=== PATIENT | female | born 1945 | race Caucasian/White ===

== ENCOUNTER 2016-11-30 16:28 | Inpatient (IN) | payer MEDICARE, OTHER ==
[~2016-11-30] VITALS: Ht 157.5 cm; Wt 59.2 kg
[~2016-11-30 16:28] MED LIST: CARB100T4 PO; CARB200T4 PO; CHOL20003 PO; CLON-364 PO; CLON0.25 PO; CYAN100028 PO; DONE10TA7 PO; ERGO500017 PO; ESCI5SOL2 PO; FOLI-17 PO; GABA300C10 PO; GABA600T2 PO; HYDR-3144 PO; LEVE10007 PO; LISI5TAB7 PO; MELO-190 PO; METO25TA35 PO; OLAN7.5T5 PO; OXYC10TA6 PO; POTA10TA12 PO; PRED20TA PO; SERT50TA5 PO
[2016-11-30] MEDS ORDERED: SODIUM CHLORIDE 0.9% 1,000 ML IV ONE (16:37)
[2016-11-30] MEDS ORDERED: ALBUTEROL/IPRATROPIUM 2.5MG/0.5MG, 3 ML ONE (16:51)
[2016-11-30] MEDS ORDERED: ALBUTEROL/IPRATROPIUM 2.5MG/0.5MG, 3 ML NPPB ONE (17:00)
[2016-11-30] MEDS ORDERED: SODIUM CHLORIDE FLUSH 10ML SYR IVF ONE (17:00)
[2016-11-30 17:04] LABS: BLOOD UREA NITROGEN 14 mg/dL (7-18)
[2016-11-30 17:08] LABS: IS PT STATUS REG ER OR PRE ER? YES
[2016-11-30] MEDS ORDERED: MORPHINE SULFATE 4 MG/ML, 1ML ONE (18:17)
[2016-11-30] MEDS ORDERED: DIPHENHYDRAMINE 50 MG/ML, 1ML ONE (18:45)
[2016-11-30] MEDS ORDERED: DIPHENHYDRAMINE 50 MG/ML, 1ML IVPush ONE (19:00)
[2016-11-30] MEDS ORDERED: MORPHINE SULFATE 4 MG/ML, 1ML IVPush PRN (19:00)
[2016-11-30] MEDS ORDERED: POLYETHYLENE GLYCOL 17 GM PACKET PO PRN (19:30)
[2016-11-30] MEDS ORDERED: ERGOCALCIFEROL 50,000 UNIT CAPSULE PO SCH (19:30)
[2016-11-30] MEDS ORDERED: ACETAMINOPHEN 325 MG TABLET PO PRN (19:30)
[2016-11-30] MEDS ORDERED: ONDANSETRON 2MG/ML, 2ML IVPush PRN (19:30)
[2016-11-30] MEDS ORDERED: BISACODYL 10 MG SUPP PR PRN (19:30)
[2016-11-30 20:05] VITALS: BP 118/65
[2016-11-30] MEDS: HYDROcodone/APAP 10/325 MG TABLET PO PRN (20:12)
[2016-11-30 20:30] VITALS: BP 118/65
[2016-11-30] MEDS: METOPROLOL TARTRATE 25 MG TABLET PO SCH (20:57)
[2016-11-30] MEDS: HEPARIN 5,000 UNITS/ML, 1ML SQ SCH (20:57)
[2016-11-30] MEDS: GABAPENTIN 300 MG CAPSULE PO SCH (20:58)
[2016-11-30] MEDS ORDERED: HYDROcodone/APAP 10/325 MG TABLET PO SCH (21:00)
[2016-11-30] MEDS: NICOTINE 7 MG/24 HR PATCH.TD24 TD SCH (21:02)
[2016-11-30] MEDS: SODIUM CHLORIDE FLUSH 3ML SYRINGE IVF SCH (21:03)
[2016-11-30] MEDS: AZITHROMYCIN 500 MG in SODIUM CHLORIDE 0.9% 250 ML IV SCH (21:04)
[2016-12-01 01:45] VITALS: BP 99/66
[2016-12-01] MEDS: HEPARIN 5,000 UNITS/ML, 1ML SQ SCH ×3 (05:38→20:55)
[2016-12-01 05:59] LABS: ASPARTATE AMINO TRANSFERASE 16 U/L (15-37); BLOOD UREA NITROGEN 10 mg/dL (7-18)
[2016-12-01] MEDS ORDERED: PNEUMOCOCCAL 23 VACCINE IM-VACC ONE (07:00)
[2016-12-01 07:51] VITALS: BP 117/71
[2016-12-01] MEDS: HYDROcodone/APAP 10/325 MG TABLET PO PRN ×3 (08:12→20:55)
[2016-12-01] MEDS: OLANZAPINE 2.5 MG TABLET PO SCH (08:14)
[2016-12-01] MEDS: MELOXICAM 15 MG TABLET PO SCH (08:15)
[2016-12-01] MEDS: METOPROLOL TARTRATE 25 MG TABLET PO SCH ×2 (08:16→20:55)
[2016-12-01] MEDS: SENNA/DOCUSATE TABLET PO SCH (08:16)
[2016-12-01] MEDS: SERTRALINE 50MG TABLET PO SCH (08:17)
[2016-12-01] MEDS: LISINOPRIL 5 MG TABLET PO SCH (08:17)
[2016-12-01] MEDS: GABAPENTIN 300 MG CAPSULE PO SCH ×3 (08:17→20:55)
[2016-12-01] MEDS: CYANOCOBALAMIN 1,000 MCG TABLET PO SCH (08:17)
[2016-12-01] MEDS ORDERED: POTASSIUM CHLORIDE 10 MEQ TABLET.ER PO SCH (09:00)
[2016-12-01] MEDS: SODIUM CHLORIDE FLUSH 3ML SYRINGE IVF SCH ×2 (09:00→20:56)
[2016-12-01] MEDS: DONEPEZIL 10 MG TABLET PO SCH (12:06)
[2016-12-01] MEDS: FLUTICASONE/VILANTEROL 100-25MCG/INH INH SCH (12:08)
[2016-12-01 14:00] VITALS: BP 96/60
[2016-12-01] MEDS: POTASSIUM CHLORIDE 10 MEQ TABLET.ER PO SCH (16:06)
[2016-12-01] MEDS: NICOTINE 7 MG/24 HR PATCH.TD24 TD SCH (19:30)
[2016-12-01 19:32] VITALS: BP 117/68
[2016-12-01] MEDS: AZITHROMYCIN 500 MG in SODIUM CHLORIDE 0.9% 250 ML IV SCH (20:55)
[2016-12-02 00:45] VITALS: BP 98/60
[2016-12-02] MEDS: HEPARIN 5,000 UNITS/ML, 1ML SQ SCH ×3 (05:15→23:25)
[2016-12-02] MEDS: HYDROcodone/APAP 10/325 MG TABLET PO PRN ×2 (05:17→15:22)
[2016-12-02 07:43] VITALS: BP 123/70
[2016-12-02] MEDS: CYANOCOBALAMIN 1,000 MCG TABLET PO SCH (08:46)
[2016-12-02] MEDS: SERTRALINE 50MG TABLET PO SCH (08:46)
[2016-12-02] MEDS: LISINOPRIL 5 MG TABLET PO SCH (08:46)
[2016-12-02] MEDS: FLUTICASONE/VILANTEROL 100-25MCG/INH INH SCH (08:46)
[2016-12-02] MEDS: SODIUM CHLORIDE FLUSH 3ML SYRINGE IVF SCH ×2 (08:47→20:39)
[2016-12-02] MEDS: OLANZAPINE 2.5 MG TABLET PO SCH (08:47)
[2016-12-02] MEDS: GABAPENTIN 300 MG CAPSULE PO SCH ×3 (08:47→20:38)
[2016-12-02] MEDS: POTASSIUM CHLORIDE 10 MEQ TABLET.ER PO SCH (08:47)
[2016-12-02] MEDS: METOPROLOL TARTRATE 25 MG TABLET PO SCH ×2 (08:47→20:38)
[2016-12-02] MEDS: DONEPEZIL 10 MG TABLET PO SCH (08:47)
[2016-12-02] MEDS: SENNA/DOCUSATE TABLET PO SCH (08:48)
[2016-12-02] MEDS: MELOXICAM 15 MG TABLET PO SCH (10:48)
[2016-12-02 15:45] VITALS: BP 105/47
[2016-12-02] MEDS: NICOTINE 7 MG/24 HR PATCH.TD24 TD SCH (19:30)
[2016-12-02 19:41] VITALS: BP 110/56
[2016-12-03 01:35] VITALS: BP 107/70
[2016-12-03] MEDS: HYDROcodone/APAP 10/325 MG TABLET PO PRN ×5 (02:35→22:30)
[2016-12-03 07:12] VITALS: BP 116/58
[2016-12-03] MEDS: SODIUM CHLORIDE FLUSH 3ML SYRINGE IVF SCH ×2 (08:14→20:13)
[2016-12-03] MEDS: FLUTICASONE/VILANTEROL 100-25MCG/INH INH SCH (08:14)
[2016-12-03] MEDS: POTASSIUM CHLORIDE 10 MEQ TABLET.ER PO SCH (08:14)
[2016-12-03] MEDS: HEPARIN 5,000 UNITS/ML, 1ML SQ SCH ×3 (08:14→22:31)
[2016-12-03] MEDS: DONEPEZIL 10 MG TABLET PO SCH (08:14)
[2016-12-03] MEDS: LISINOPRIL 5 MG TABLET PO SCH (08:15)
[2016-12-03] MEDS: METOPROLOL TARTRATE 25 MG TABLET PO SCH ×2 (08:15→20:13)
[2016-12-03] MEDS: GABAPENTIN 300 MG CAPSULE PO SCH ×3 (08:15→20:13)
[2016-12-03] MEDS: SERTRALINE 50MG TABLET PO SCH (08:15)
[2016-12-03] MEDS: SENNA/DOCUSATE TABLET PO SCH (08:15)
[2016-12-03] MEDS: MELOXICAM 15 MG TABLET PO SCH (08:15)
[2016-12-03] MEDS: CYANOCOBALAMIN 1,000 MCG TABLET PO SCH (08:15)
[2016-12-03] MEDS: OLANZAPINE 2.5 MG TABLET PO SCH (08:16)
[2016-12-03 13:30] VITALS: BP 126/77
[2016-12-03] MEDS: NICOTINE 7 MG/24 HR PATCH.TD24 TD SCH (19:30)
[2016-12-03 20:08] VITALS: BP 124/70
[2016-12-03] MEDS: AZITHROMYCIN 500 MG in SODIUM CHLORIDE 0.9% 250 ML IV SCH (20:13)
[2016-12-04 02:00] VITALS: BP 145/77
[2016-12-04 07:26] VITALS: BP 128/70
[2016-12-04] MEDS: FLUTICASONE/VILANTEROL 100-25MCG/INH INH SCH (08:07)
[2016-12-04] MEDS: HEPARIN 5,000 UNITS/ML, 1ML SQ SCH (08:07)
[2016-12-04] MEDS: SODIUM CHLORIDE FLUSH 3ML SYRINGE IVF SCH (08:07)
[2016-12-04] MEDS: DONEPEZIL 10 MG TABLET PO SCH (08:07)
[2016-12-04] MEDS: POTASSIUM CHLORIDE 10 MEQ TABLET.ER PO SCH (08:08)
[2016-12-04] MEDS: MELOXICAM 15 MG TABLET PO SCH (08:08)
[2016-12-04] MEDS: METOPROLOL TARTRATE 25 MG TABLET PO SCH (08:08)
[2016-12-04] MEDS: OLANZAPINE 2.5 MG TABLET PO SCH (08:09)
[2016-12-04] MEDS: CYANOCOBALAMIN 1,000 MCG TABLET PO SCH (08:09)
[2016-12-04] MEDS: HYDROcodone/APAP 10/325 MG TABLET PO PRN (08:09)
[2016-12-04] MEDS: SENNA/DOCUSATE TABLET PO SCH (08:09)
[2016-12-04] MEDS: SERTRALINE 50MG TABLET PO SCH (08:09)
[2016-12-04] MEDS: GABAPENTIN 300 MG CAPSULE PO SCH (08:09)
[2016-12-04] MEDS: LISINOPRIL 5 MG TABLET PO SCH (08:11)
[2016-12-04] MEDS ORDERED: PRED5TAB PO (08:28)
[2016-12-04] MEDS ORDERED: HYDR-3144 PO (08:28)
[2016-12-04] MEDS ORDERED: AZIT250T89 PO (08:28)
== END 2016-12-04 12:15 | disposition home or self-care (01) | DRG 189 ==
LOC: ED 18:41 → EDIP 19:24 → 3NE 19:30 → DCLOUNGE 12-04 11:34
PROVIDERS: ADMIT Internal Medicine; ATTEND Internal Medicine
DX: J96.01 Acute respiratory failure with hypoxia (principal); J44.1 Chronic obstructive pulmonary disease with (acute) exacerbation; E44.1 Mild protein-calorie malnutrition; G35 Multiple sclerosis; Z96.651 Presence of right artificial knee joint; G50.0 Trigeminal neuralgia; F17.210 Nicotine dependence, cigarettes, uncomplicated; M19.90 Unspecified osteoarthritis, unspecified site; G89.4 Chronic pain syndrome; Z80.1 Family history of malignant neoplasm of trachea, bronchus and lung; Z68.23 Body mass index [BMI] 23.0-23.9, adult; Z82.49 Family history of ischemic heart disease and other diseases of the circulatory system; Z90.49 Acquired absence of other specified parts of digestive tract; Z90.89 Acquired absence of other organs; Z88.5 Allergy status to narcotic agent; Z88.8 Allergy status to other drugs, medicaments and biological substances; Z71.6 Tobacco abuse counseling; Z23 Encounter for immunization
CPT/HCPCS: 36415; 71010; 80048; 80053; 82040; 83880; 84484; 85025; 90732; 93005; 94640; 96361; 96374; 96375; J0456; J1644; J7620; J1200; J7030; J7050; J7512

== ENCOUNTER 2016-12-06 04:22 | Inpatient (IN) | payer MEDICARE ==
[~2016-12-06] VITALS: Ht 157.5 cm; Wt 55.6 kg
[~2016-12-06 04:22] MED LIST changes: +AZIT250T89 PO; +CHOL2000 PO; -CHOL20003 PO; +PRED5TAB PO
[2016-12-06] MEDS ORDERED: HYDROmorphone 1 MG/ML, 1ML ONE (05:24)
[2016-12-06] MEDS ORDERED: ONDANSETRON 2MG/ML, 2ML ONE (05:24)
[2016-12-06] MEDS ORDERED: SODIUM CHLORIDE FLUSH 10ML SYR IVF ONE (05:30)
[2016-12-06] MEDS ORDERED: HYDROmorphone 1 MG/ML, 1ML IV ONE (05:30)
[2016-12-06] MEDS ORDERED: ONDANSETRON 2MG/ML, 2ML IVP ONE (05:30)
[2016-12-06] MEDS ORDERED: ALBUTEROL/IPRATROPIUM 2.5MG/0.5MG, 3 ML ONE (05:32)
[2016-12-06] MEDS: ALBUTEROL/IPRATROPIUM 2.5MG/0.5MG, 3 ML NPPB SCH (05:35)
[2016-12-06 06:17] LABS: BLOOD UREA NITROGEN 11 mg/dL (7-18)
[2016-12-06 06:26] LABS: IS PT STATUS REG ER OR PRE ER? YES
[2016-12-06] MEDS ORDERED: CEFTRIAXONE 1,000 MG in SODIUM CHLORIDE 0.9% 50 ML IVPB ONE (07:00)
[2016-12-06] MEDS ORDERED: CEFTRIAXONE PMX 1GM/50ML 50 ML ONE (08:10)
[2016-12-06] MEDS ORDERED: BISACODYL 10 MG SUPP PR PRN (09:00)
[2016-12-06] MEDS ORDERED: DOCUSATE 100 MG CAPSULE PO PRN (09:00)
[2016-12-06] MEDS: FUROSEMIDE 20 MG/2 ML IV SCH (10:25)
[2016-12-06] MEDS: DOXYCYCLINE 100 MG in DEXTROSE 5% 250 ML IV SCH ×2 (10:25→22:26)
[2016-12-06] MEDS: OXYcodone IR 5MG TABLET PO PRN ×5 (10:25→23:02)
[2016-12-06] MEDS: ENOXAPARIN 40 MG/0.4 ML SQ SCH (10:26)
[2016-12-06 10:37] LABS: IS PT STATUS REG ER OR PRE ER? NO
[2016-12-06 14:00] VITALS: BP 149/77
[2016-12-06 14:03] VITALS: BP 149/77
[2016-12-06 15:40] LABS: IS PT STATUS REG ER OR PRE ER? NO
[2016-12-06] MEDS ORDERED: ALBUTEROL SULFATE 2.5 MG/3 ML ONE (16:32)
[2016-12-06] MEDS: ALBUTEROL SULFATE 2.5 MG/3 ML NPPB SCH (16:40)
[2016-12-06] MEDS ORDERED: ALBUTEROL SULFATE 2.5 MG/3 ML NPPB PRN (17:00)
[2016-12-06] MEDS: GABAPENTIN 300 MG CAPSULE PO SCH ×2 (17:00→21:05)
[2016-12-06 18:57] VITALS: BP 124/70
[2016-12-06] MEDS ORDERED: ALBUTEROL SULFATE 2.5 MG/3 ML NPPB SCH (21:00)
[2016-12-06] MEDS: METOPROLOL TARTRATE 25 MG TABLET PO SCH (21:05)
[2016-12-07 02:05] VITALS: BP 106/63
[2016-12-07 05:06] LABS: ASPARTATE AMINO TRANSFERASE 14 U/L (15-37); BLOOD UREA NITROGEN 8 mg/dL (7-18)
[2016-12-07] MEDS: CEFTRIAXONE PMX 1GM/50ML 50 ML IV SCH (05:51)
[2016-12-07 06:47] VITALS: BP 114/69
[2016-12-07] MEDS: ALBUTEROL SULFATE 2.5 MG/3 ML NPPB SCH ×4 (07:00→19:40)
[2016-12-07] MEDS: GABAPENTIN 300 MG CAPSULE PO SCH ×3 (08:28→19:57)
[2016-12-07] MEDS: FUROSEMIDE 20 MG/2 ML IV SCH (08:28)
[2016-12-07] MEDS: OXYcodone IR 5MG TABLET PO PRN ×4 (08:28→19:57)
[2016-12-07] MEDS: METOPROLOL TARTRATE 25 MG TABLET PO SCH ×2 (08:29→19:58)
[2016-12-07] MEDS: POTASSIUM CHLORIDE 10 MEQ TABLET.ER PO SCH (08:29)
[2016-12-07] MEDS: DONEPEZIL 10 MG TABLET PO SCH (08:29)
[2016-12-07] MEDS: SERTRALINE 50MG TABLET PO SCH (08:29)
[2016-12-07] MEDS ORDERED: LISINOPRIL 5 MG TABLET PO SCH (09:00)
[2016-12-07] MEDS ORDERED: CYANOCOBALAMIN 1000 MCG PO SCH (09:00)
[2016-12-07] MEDS ORDERED: OLANZAPINE 7.5 MG PO SCH (09:00)
[2016-12-07] MEDS ORDERED: MELOXICAM 7.5 MG PO SCH (09:00)
[2016-12-07] MEDS: DOXYCYCLINE 100 MG in DEXTROSE 5% 250 ML IV SCH ×2 (10:30→21:50)
[2016-12-07] MEDS: ENOXAPARIN 40 MG/0.4 ML SQ SCH (10:30)
[2016-12-07 12:29] VITALS: BP 98/61
[2016-12-07] MEDS ORDERED: OLANZAPINE 2.5 MG TABLET PO SCH (19:31)
[2016-12-07 20:23] VITALS: BP 98/60
[2016-12-08] MEDS: OXYcodone IR 5MG TABLET PO PRN ×6 (00:04→23:36)
[2016-12-08 03:54] VITALS: BP 114/69
[2016-12-08 05:27] LABS: BLOOD UREA NITROGEN 13 mg/dL (7-18)
[2016-12-08] MEDS: CEFTRIAXONE PMX 1GM/50ML 50 ML IV SCH (06:46)
[2016-12-08 06:53] VITALS: BP 105/65
[2016-12-08] MEDS: ALBUTEROL SULFATE 2.5 MG/3 ML NPPB SCH ×5 (07:00→20:46)
[2016-12-08] MEDS: METOPROLOL TARTRATE 25 MG TABLET PO SCH ×2 (07:42→21:08)
[2016-12-08] MEDS: SERTRALINE 50MG TABLET PO SCH (07:44)
[2016-12-08] MEDS: POTASSIUM CHLORIDE 10 MEQ TABLET.ER PO SCH (07:44)
[2016-12-08] MEDS: DONEPEZIL 10 MG TABLET PO SCH (07:44)
[2016-12-08] MEDS: CYANOCOBALAMIN 1,000 MCG TABLET PO SCH (07:44)
[2016-12-08] MEDS: GABAPENTIN 300 MG CAPSULE PO SCH ×3 (07:44→21:05)
[2016-12-08] MEDS: OLANZAPINE 2.5 MG TABLET PO SCH (07:45)
[2016-12-08] MEDS: FUROSEMIDE 20 MG/2 ML IV SCH (07:45)
[2016-12-08] MEDS: MELOXICAM 15 MG TABLET PO SCH (07:47)
[2016-12-08] MEDS: ENOXAPARIN 40 MG/0.4 ML SQ SCH (09:59)
[2016-12-08] MEDS: DOXYCYCLINE 100 MG in DEXTROSE 5% 250 ML IV SCH ×2 (09:59→22:34)
[2016-12-08 13:01] VITALS: BP 91/51
[2016-12-08 19:01] VITALS: BP 101/62
[2016-12-09 03:04] VITALS: BP 100/61
[2016-12-09] MEDS: OXYcodone IR 5MG TABLET PO PRN ×5 (05:37→22:30)
[2016-12-09] MEDS: CEFTRIAXONE PMX 1GM/50ML 50 ML IV SCH (06:27)
[2016-12-09] MEDS: ALBUTEROL SULFATE 2.5 MG/3 ML NPPB SCH ×4 (07:07→21:45)
[2016-12-09 07:37] VITALS: BP 95/57
[2016-12-09] MEDS: FUROSEMIDE 20 MG/2 ML IV SCH (09:00)
[2016-12-09] MEDS: METOPROLOL TARTRATE 25 MG TABLET PO SCH ×2 (09:00→21:19)
[2016-12-09] MEDS: CYANOCOBALAMIN 1,000 MCG TABLET PO SCH (09:53)
[2016-12-09] MEDS: MELOXICAM 15 MG TABLET PO SCH (09:53)
[2016-12-09] MEDS: SERTRALINE 50MG TABLET PO SCH (09:53)
[2016-12-09] MEDS: POTASSIUM CHLORIDE 10 MEQ TABLET.ER PO SCH (09:53)
[2016-12-09] MEDS: DONEPEZIL 10 MG TABLET PO SCH (09:53)
[2016-12-09] MEDS: GABAPENTIN 300 MG CAPSULE PO SCH ×3 (09:53→21:18)
[2016-12-09] MEDS: OLANZAPINE 2.5 MG TABLET PO SCH (09:54)
[2016-12-09] MEDS: DOXYCYCLINE 100 MG in DEXTROSE 5% 250 ML IV SCH ×2 (09:54→21:31)
[2016-12-09] MEDS: ENOXAPARIN 40 MG/0.4 ML SQ SCH (09:55)
[2016-12-09 13:53] VITALS: BP 95/55
[2016-12-09 19:58] VITALS: BP 110/45
[2016-12-09] MEDS: ACETAMINOPHEN 325 MG TABLET PO PRN (22:30)
[2016-12-10 03:19] VITALS: BP 101/65
[2016-12-10] MEDS: ACETAMINOPHEN 325 MG TABLET PO PRN ×5 (04:14→20:45)
[2016-12-10] MEDS: OXYcodone IR 5MG TABLET PO PRN ×5 (04:14→20:44)
[2016-12-10 05:48] LABS: BLOOD UREA NITROGEN 16 mg/dL (7-18)
[2016-12-10] MEDS: ALBUTEROL SULFATE 2.5 MG/3 ML NPPB SCH ×4 (07:12→20:00)
[2016-12-10 08:20] VITALS: BP 99/65
[2016-12-10] MEDS: CEFTRIAXONE PMX 1GM/50ML 50 ML IV SCH (08:30)
[2016-12-10] MEDS: POTASSIUM CHLORIDE 10 MEQ TABLET.ER PO SCH (08:30)
[2016-12-10] MEDS: DONEPEZIL 10 MG TABLET PO SCH (08:30)
[2016-12-10] MEDS: MELOXICAM 15 MG TABLET PO SCH (08:31)
[2016-12-10] MEDS: METOPROLOL TARTRATE 25 MG TABLET PO SCH (08:31)
[2016-12-10] MEDS: OLANZAPINE 2.5 MG TABLET PO SCH (08:32)
[2016-12-10] MEDS: GABAPENTIN 300 MG CAPSULE PO SCH ×3 (08:32→20:45)
[2016-12-10] MEDS: CYANOCOBALAMIN 1,000 MCG TABLET PO SCH (08:32)
[2016-12-10] MEDS: SERTRALINE 50MG TABLET PO SCH (08:32)
[2016-12-10] MEDS: DOXYCYCLINE 100 MG in DEXTROSE 5% 250 ML IV SCH ×2 (10:44→21:40)
[2016-12-10] MEDS: ENOXAPARIN 40 MG/0.4 ML SQ SCH (10:44)
[2016-12-10 13:55] VITALS: BP 97/61
[2016-12-10] MEDS ORDERED: CEFD300C37 PO (13:59)
[2016-12-10] MEDS ORDERED: DOXY100T PO (13:59)
[2016-12-10] MEDS: SODIUM CHLORIDE 0.9% 500 ML IV SCH ×3 (14:21→14:56)
[2016-12-10 15:34] VITALS: BP_SYST 96; BP_SYST 99; BP_DIAS 63; BP_DIAS 68
[2016-12-10] MEDS: SODIUM CHLORIDE 0.9% 1,000 ML IV SCH (16:50)
[2016-12-10 19:52] VITALS: BP 132/74
[2016-12-11] MEDS: OXYcodone IR 5MG TABLET PO PRN ×4 (00:56→13:04)
[2016-12-11] MEDS: ACETAMINOPHEN 325 MG TABLET PO PRN ×3 (00:57→09:16)
[2016-12-11 02:58] VITALS: BP 128/73
[2016-12-11] MEDS: SODIUM CHLORIDE 0.9% 1,000 ML IV SCH ×2 (03:30→11:55)
[2016-12-11 05:27] LABS: BLOOD UREA NITROGEN 15 mg/dL (7-18)
[2016-12-11] MEDS: ALBUTEROL SULFATE 2.5 MG/3 ML NPPB SCH ×2 (06:50→10:29)
[2016-12-11 07:08] VITALS: BP 138/82
[2016-12-11] MEDS: CYANOCOBALAMIN 1,000 MCG TABLET PO SCH (07:52)
[2016-12-11] MEDS: GABAPENTIN 300 MG CAPSULE PO SCH (07:52)
[2016-12-11] MEDS: OLANZAPINE 2.5 MG TABLET PO SCH (07:52)
[2016-12-11] MEDS: SERTRALINE 50MG TABLET PO SCH (07:52)
[2016-12-11] MEDS: DONEPEZIL 10 MG TABLET PO SCH (07:52)
[2016-12-11] MEDS: CEFTRIAXONE PMX 1GM/50ML 50 ML IV SCH (07:52)
[2016-12-11] MEDS: POTASSIUM CHLORIDE 10 MEQ TABLET.ER PO SCH (07:52)
[2016-12-11] MEDS: MELOXICAM 15 MG TABLET PO SCH (07:57)
[2016-12-11] MEDS: DOXYCYCLINE 100 MG in DEXTROSE 5% 250 ML IV SCH (10:20)
[2016-12-11] MEDS: ENOXAPARIN 40 MG/0.4 ML SQ SCH (10:20)
[2016-12-11] MEDS ORDERED: METO25TA35 PO (11:00)
[2016-12-11] MEDS ORDERED: LISI5TAB7 PO (11:00)
[2016-12-11 11:30] VITALS: BP 119/71
== END 2016-12-11 14:10 | disposition home or self-care (01) | DRG 291 ==
LOC: ED 06:01 → EDIP 06:51 → 4NOR 08:25 → DCLOUNGE 12-11 12:19
PROVIDERS: ADMIT Internal Medicine; ATTEND Internal Medicine
DX: I11.0 Hypertensive heart disease with heart failure (principal); J96.01 Acute respiratory failure with hypoxia; J15.9 Unspecified bacterial pneumonia; J44.1 Chronic obstructive pulmonary disease with (acute) exacerbation; J44.0 Chronic obstructive pulmonary disease with (acute) lower respiratory infection; G50.0 Trigeminal neuralgia; F17.210 Nicotine dependence, cigarettes, uncomplicated; F03.90 Unspecified dementia, unspecified severity, without behavioral disturbance, psychotic disturbance, mood disturbance, and anxiety; G89.4 Chronic pain syndrome; I27.2 Other secondary pulmonary hypertension; I50.9 Heart failure, unspecified; G35 Multiple sclerosis; M19.90 Unspecified osteoarthritis, unspecified site; I95.1 Orthostatic hypotension; Z82.49 Family history of ischemic heart disease and other diseases of the circulatory system; Z80.1 Family history of malignant neoplasm of trachea, bronchus and lung; Z88.5 Allergy status to narcotic agent; Z88.8 Allergy status to other drugs, medicaments and biological substances
CPT/HCPCS: 36415; 71010; 80048; 80053; 81003; 82040; 83605; 83735; 83880; 84100; 84145; 84443; 84484; 85025; 87040; 93005; 93308; 93321; 93325; 94640; 96374; 96375; J0696; J1170; J1650; J2405; J7060; J7613; J7620; J1940; J7030; J7040; J7512

== ENCOUNTER 2016-12-25 15:44 | Emergency (ER) | payer MEDICARE ==
[~2016-12-25] VITALS: Ht 157.5 cm; Wt 61.4 kg
[~2016-12-25 15:44] MED LIST changes: +CEFD300C37 PO; +DOXY100T PO
[2016-12-25] MEDS ORDERED: SODIUM CHLORIDE FLUSH 10ML SYR IVF ONE (16:00)
[2016-12-25 16:43] LABS: BLOOD UREA NITROGEN 38 mg/dL (7-18)
[2016-12-25 16:49] LABS: ASPARTATE AMINO TRANSFERASE 13 U/L (15-37)
[2016-12-25 16:54] LABS: IS PT STATUS REG ER OR PRE ER? YES
[2016-12-25] MEDS ORDERED: HYDROmorphone 1 MG/ML, 1ML IVPush PRN (17:00)
[2016-12-25] MEDS ORDERED: ONDANSETRON 2MG/ML, 2ML IVPush ONE (17:00)
[2016-12-25] MEDS ORDERED: HYDROmorphone 1 MG/ML, 1ML ONE (17:49)
[2016-12-25] MEDS ORDERED: ONDANSETRON 2MG/ML, 2ML ONE (17:49)
[2016-12-25] MEDS ORDERED: OMNIPAQUE 300 MG/ML, 10ML VIAL ONE (18:51)
[2016-12-25 20:07] VITALS: BP 101/64
== END 2016-12-25 20:11 | disposition home or self-care (01) ==
LOC: ED 18:41
DX: R06.00 Dyspnea, unspecified (principal); N30.00 Acute cystitis without hematuria; I10 Essential (primary) hypertension; J44.9 Chronic obstructive pulmonary disease, unspecified
CPT/HCPCS: 36415; 71010; 71275; 80053; 81001; 84484; 85025; 85379; 85610; 85730; 87040; 87086; 93005; 96374; 96375; 99285; J1170; J2405; Q9967

== ENCOUNTER 2018-02-17 12:47 | Emergency (ER) | payer MEDICARE ==
[~2018-02-17] VITALS: Ht 157.5 cm; Wt 48.0 kg
[~2018-02-17 12:47] MED LIST changes: -CLON-364 PO; +CLON0.5T11 PO; -HYDR-3144 PO; +HYDR-3245 PO; -MELO-190 PO; +MELO7.5T31 PO
[2018-02-17 13:54] LABS: MEAN CORPUSCULAR HEMOGLOBIN 30.2 pg (27.0-34.8); MEAN CORPUSCULAR HGB CONC 33.3 g/dL (32.4-35.8); MEAN CORPUSCULAR VOLUME 90.7 fL (80-100); RED BLOOD COUNT 4.46 x10^6/uL (3.82-5.3); RED CELL DISTRIBUTION WIDTH 13.4 % (9.6-15.2)
[2018-02-17 14:02] LABS: INTERNATIONAL NORMALIZED RATIO 1.01 (0.93-1.1); PROTHROMBIN TIME 10.5 Seconds (9.6-11.5)
[2018-02-17 14:18] LABS: BASOPHILS # (AUTO) 0.02 x10^3/uL (0-0.1); BASOPHILS % (AUTO) 0 % (0-1); EOSINOPHILS # (AUTO) 0.09 x10^3/uL (0-0.4); EOSINOPHILS % (AUTO) 1 % (1-7); LYMPHOCYTES # (AUTO) 0.81 x10^3/uL (1-3.4); LYMPHOCYTES % (AUTO) 11 % (22-44); MD SCAN; MEAN PLATELET VOLUME 6.6 fL (7.4-10.4); MONOCYTES % (AUTO) 6 % (2-9); NEUTROPHILS # (AUTO) 5.91 x10^3/uL (1.8-6.8); NEUTROPHILS % (AUTO) 82 % (42-75); PLATELET COUNT 434 x10^3/uL (130-400)
[2018-02-17 14:22] LABS: CHLORIDE 102 mmol/L (98-107)
[2018-02-17 14:23] LABS: ALANINE AMINOTRANSFERASE 15 U/L (12-78); ALBUMIN 3.3 g/dL (3.4-5.0); ALKALINE PHOSPHATASE 95 U/L (45-117); ANION GAP 2 mmol/L (5-15); BILIRUBIN,TOTAL 0.4 mg/dL (0.2-1.0); CALCIUM 8.7 mg/dL (8.5-10.1); CREATININE 0.63 mg/dL (0.55-1.02); TOTAL PROTEIN 7.1 g/dL (6.4-8.2); TROPONIN I < 0.015 ng/mL (0.000-0.045)
[2018-02-17 15:08] VITALS: BP 135/47
== END 2018-02-17 18:29 | disposition home or self-care (01) ==
LOC: ED 13:49
DX: J44.1 Chronic obstructive pulmonary disease with (acute) exacerbation (principal); R09.02 Hypoxemia
CPT/HCPCS: 36415; 71045; 80053; 83880; 84484; 85025; 85610; 85730; 93005; 99285

== ENCOUNTER 2019-07-11 19:02 | Inpatient (IN) | payer MEDICARE ==
[~2019-07-11] VITALS: Ht 157.5 cm; Wt 66.0 kg
[~2019-07-11 19:02] MED LIST changes: +ACET325T26 PO; +ACID1TAB7 PO; +AMLO-150 PO; +BENZOCAINE MM; +CHLO473M MM; +CLON-364 PO; -CLON0.5T11 PO; -GABA600T2 PO; +GABA600T7 PO; +HYDR-3237 PO; +LISI-170 PO; +SENN-193 PO; +SERT50TA28 PO; -SERT50TA5 PO
[2019-07-11] MEDS ORDERED: methylPREDNISolone SOD SUCC 125 MG/2 ML ONE (19:24)
[2019-07-11] MEDS ORDERED: FENTANYL PF 100 MCG/2ML ONE (19:24)
[2019-07-11] MEDS ORDERED: FENTANYL PF 100 MCG/2ML IVPush ONE (19:30)
[2019-07-11] MEDS ORDERED: SODIUM CHLORIDE 0.9% 1,000ML IVBOLUS ONE (19:30)
[2019-07-11] MEDS ORDERED: PLEASE ENTER HEIGHT AND WEIGHT MC SCH (19:30)
[2019-07-11] MEDS ORDERED: ALBUTEROL/IPRATROPIUM 2.5MG/0.5MG, 3 ML NPPB ONE (19:30)
[2019-07-11] MEDS ORDERED: SODIUM CHLORIDE FLUSH 10ML SYR IVF ONE (19:30)
[2019-07-11] MEDS ORDERED: methylPREDNISolone SOD SUCC 125 MG/2 ML IV ONE (19:30)
[2019-07-11 19:31] LABS: BASOPHILS # (AUTO) 0.06 x10^3/uL (0-0.1); BASOPHILS % (AUTO) 1 % (0-1); EOSINOPHILS # (AUTO) 0.13 x10^3/uL (0-0.4); EOSINOPHILS % (AUTO) 2 % (1-7); LYMPHOCYTES # (AUTO) 2.51 x10^3/uL (1-3.4); LYMPHOCYTES % (AUTO) 44 % (22-44); MD NO; MEAN CORPUSCULAR HGB CONC 32.2 g/dL (32.4-35.8); MEAN CORPUSCULAR VOLUME 86.9 fL (80-100); MEAN PLATELET VOLUME 7.3 fL (7.4-10.4); MONOCYTES # (AUTO) 0.56 x10^3/uL (0.2-0.8); MONOCYTES % (AUTO) 10 % (2-9); NEUTROPHILS # (AUTO) 2.44 x10^3/uL (1.8-6.8); NEUTROPHILS % (AUTO) 43 % (42-75); PLATELET COUNT 430 x10^3/uL (130-400); RED BLOOD COUNT 4.41 x10^6/uL (3.82-5.3); RED CELL DISTRIBUTION WIDTH 15.9 % (9.6-15.2)
[2019-07-11 19:40] LABS: ALBUMIN 3.2 g/dL (3.4-5.0); ANION GAP 6 mmol/L (5-15); CALCIUM 8.6 mg/dL (8.5-10.1); CHLORIDE 107 mmol/L (98-107); CREATININE 1.03 mg/dL (0.55-1.02)
--- NOTE | 2019-07-11 20:40 | NUR ---
PT STATES PAIN STILL 10/10. NO RELIEF FROM MEDICATION. DR NOTIFIED.
[2019-07-11] MEDS ORDERED: SENNA/DOCUSATE TABLET PO SCH (21:00)
[2019-07-11] MEDS ORDERED: GUAIFENESIN/DM 200-20MG, 10ML UDC PO PRN (21:00)
[2019-07-11] MEDS ORDERED: BISACODYL 10 MG SUPP PR PRN (21:00)
[2019-07-11] MEDS ORDERED: LISINOPRIL 20 MG TABLET PO SCH (21:00)
[2019-07-11] MEDS ORDERED: ONDANSETRON ODT 4 MG PO PRN (21:00)
[2019-07-11] MEDS ORDERED: CHLORHEXIDINE 15 ML UDC MM SCH (21:00)
[2019-07-11] MEDS ORDERED: AMLODIPINE 5 MG TABLET PO SCH (21:00)
[2019-07-11] MEDS ORDERED: ORAJEL 7GM TUBE MM PRN (21:00)
[2019-07-11] MEDS ORDERED: ACETAMINOPHEN 325 MG TABLET PO PRN (21:00)
[2019-07-11] MEDS ORDERED: POLYETHYLENE GLYCOL 17 GM PACKET PO PRN (21:00)
--- NOTE | 2019-07-11 21:08 | NUR ---
RPT CALLED TO MELIA KHAN. PT RTG.
[2019-07-11] MEDS: LACTOBACILLUS CHEW TABLET PO SCH (22:35)
[2019-07-11] MEDS: SODIUM CHLORIDE FLUSH 10ML SYR IVF SCH (22:36)
[2019-07-11] MEDS: GABAPENTIN 300 MG CAPSULE PO SCH (22:36)
[2019-07-11] MEDS: HYDROcodone/APAP 5/325 TABLET PO PRN (23:30)
[2019-07-11] MEDS ORDERED: DIPHENHYDRAMINE 25 MG CAPSULE PO PRN (23:30)
[2019-07-12 00:06] VITALS: BP 112/57
[2019-07-12] MEDS ORDERED: ALBUTEROL/IPRATROPIUM 2.5MG/0.5MG, 3 ML NPPB PRN (01:00)
[2019-07-12 01:58] VITALS: BP 116/67
[2019-07-12] MEDS: CHLORHEXIDINE 15 ML UDC MM SCH ×2 (05:15→11:00)
[2019-07-12 06:44] VITALS: BP 106/62
[2019-07-12 06:50] LABS: MEAN CORPUSCULAR HEMOGLOBIN 27.4 pg (27.0-34.8); MEAN CORPUSCULAR HGB CONC 31.7 g/dL (32.4-35.8); MEAN CORPUSCULAR VOLUME 86.5 fL (80-100); MEAN PLATELET VOLUME 7.3 fL (7.4-10.4); PLATELET COUNT 377 x10^3/uL (130-400); RED BLOOD COUNT 4.25 x10^6/uL (3.82-5.3); RED CELL DISTRIBUTION WIDTH 15.7 % (9.6-15.2)
[2019-07-12 07:48] LABS: MD YES
[2019-07-12 08:20] LABS: LYMPH#(MANUAL) 0.81 x10^3/uL (1-3.4); LYMPHS% (MANUAL) 22 % (22-44); MONOS#(MANUAL) 0.07 x10^3/uL (0.3-2.7); MONOS% (MANUAL) 2 % (2-9); SEG#(MANUAL) 2.81 x10^3/uL (1.8-6.8); SEGS% (MANUAL) 76 % (42-75)
[2019-07-12 08:21] LABS: <PLATELET ESTIMATE> ADEQUATE; <PLT MORPHOLOGY> NORMAL PLT MORPH; <RBC MORPHOLOGY> NORMAL
[2019-07-12] MEDS: SODIUM CHLORIDE FLUSH 10ML SYR IVF SCH (09:00)
[2019-07-12] MEDS: GABAPENTIN 300 MG CAPSULE PO SCH ×2 (09:00→15:16)
[2019-07-12] MEDS ORDERED: MELOXICAM 15 MG TABLET PO SCH (09:00)
[2019-07-12] MEDS: LACTOBACILLUS CHEW TABLET PO SCH ×2 (09:00→15:16)
[2019-07-12] MEDS ORDERED: DONEPEZIL 10 MG TABLET PO SCH (09:00)
[2019-07-12] MEDS ORDERED: HYDROcodone/APAP 5/325 TABLET PO SCH (09:00)
[2019-07-12] MEDS ORDERED: CYANOCOBALAMIN 1,000 MCG TABLET PO SCH (09:00)
[2019-07-12] MEDS ORDERED: CHLO473M MM (09:41)
[2019-07-12] MEDS: HYDROcodone/APAP 5/325 TABLET PO PRN (12:07)
[2019-07-12 13:11] VITALS: BP 142/86
== END 2019-07-12 16:34 | disposition home or self-care (01) | DRG 205 ==
LOC: ED 20:49 → EDIP 20:51 → 3N 21:49
PROVIDERS: ADMIT Internal Medicine; ATTEND Internal Medicine
DX: T17.828A Food in other parts of respiratory tract causing other injury, initial encounter (principal); J96.21 Acute and chronic respiratory failure with hypoxia; J43.9 Emphysema, unspecified; F03.90 Unspecified dementia, unspecified severity, without behavioral disturbance, psychotic disturbance, mood disturbance, and anxiety; G35 Multiple sclerosis; G89.4 Chronic pain syndrome; G50.0 Trigeminal neuralgia; X58.XXXA Exposure to other specified factors, initial encounter; I10 Essential (primary) hypertension; I44.5 Left posterior fascicular block; Z80.1 Family history of malignant neoplasm of trachea, bronchus and lung; Z82.49 Family history of ischemic heart disease and other diseases of the circulatory system; Z87.891 Personal history of nicotine dependence; Z88.6 Allergy status to analgesic agent; Z88.8 Allergy status to other drugs, medicaments and biological substances; Y93.89 Activity, other specified; Y92.89 Other specified places as the place of occurrence of the external cause
CPT/HCPCS: 36415; 71045; 80048; 82040; 85025; 93005; 96361; 96374; 96375; G0378; J3010; J2930; J7030; Q0163